=== PATIENT | male | born 1960 | race Caucasian/White ===

== ENCOUNTER → 2022-08-31 16:48 | Outpatient (CLI) | payer OTHER, SELFPAY ==
--- NOTE | ~2022-08-31 | XR_ITS ---
XR lumbar spine 2-3V 08/31/2022 17:19 Indication: Low back pain Procedure: 3 views lumbar spine Comparison: No prior studies for comparison. Findings: Mild multilevel lumbar disc narrowing at all levels. Vertebral body heights are maintained. No fracture, subluxation or spondylolisthesis. There is lower lumbar spondylosis facet hypertrophy. Impression: 1: Mild lumbar spondylosis. Reviewed, dictated and finalized at location A. [employer] TRA[employer]ER Impression: 1: Mild lumbar spondylosis.
== END ==
PROVIDERS: PCP Pediatrics; Visit Provider Pediatrics
DX: M54.50 Low back pain, unspecified (principal); M47.816 Spondylosis without myelopathy or radiculopathy, lumbar region
CPT/HCPCS: 72100